=== PATIENT | male | born 2000 | race Caucasian/White ===

== ENCOUNTER 2024-09-04 20:39 | Emergency (ER) | payer SELFPAY ==
[2024-09-04 20:50] VITALS: BP 141/70
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
== END 2024-09-04 22:57 | disposition home or self-care (01) ==
LOC: EMR 20:39
PROVIDERS: EMERGENCY PHYSICIAN Student in an Organized Health Care Education/Training Program
DX: S09.90XA Unspecified injury of head, initial encounter (principal); S16.1XXA Strain of muscle, fascia and tendon at neck level, initial encounter; S60.221A Contusion of right hand, initial encounter; S29.011A Strain of muscle and tendon of front wall of thorax, initial encounter; S80.11XA Contusion of right lower leg, initial encounter; V43.52XA Car driver injured in collision with other type car in traffic accident, initial encounter
CPT/HCPCS: 99283